=== PATIENT | female | born 1955 | race Caucasian/White ===

== ENCOUNTER → 2016-08-03 | Outpatient (CLI) | payer OTHER ==
--- NOTE | 2016-08-03 11:01 | REPMRS ---
Patient History The patient states she had a clinical breast exam in 08/04 Patient is postmenopausal and is nulliparous. Family history of unknown cancer in father at age 50 or over, prostate cancer in maternal grandfather at age 50 or over, colorectal cancer in paternal grandfather at age 50 or over, breast cancer in mother at age 50 or over, ovarian cancer in mother at age 50 or over, colorectal cancer in paternal aunt at age 50 or over, colorectal cancer in paternal grandmother at age 50 or over, colorectal cancer in maternal grandmother at age 50 or over, and unknown cancer in paternal uncle at age 50 or over. Benign excisional biopsy of the left breast. Digital Woman Screen Mammo: August 03, 2016 - Exam #: [id number] Bilateral CC and MLO view(s) were taken. Technologist: Santa Don, Technologist Prior study comparison: July 14, 2015, digital woman screen mammo performed at [facility]. July 09, 2014, digital woman screen mammo performed at [facility]. FINDINGS: The breast tissue is heterogeneously dense. This may lower the sensitivity of mammography. There is a fairly symmetric fibroglandular pattern in both breasts. There has been no interval development of masses, areas of architectural distortion or clusters of microcalcifications typical of malignancy. ASSESSMENT: BI-RADS/ACR category 2 mammogram. Benign finding(s). Given the family history and heterogeneously dense breast parenchyma, consider MRI for further evaluation. Recommendation Routine screening mammogram of both breasts in 1 year (for women over age 40). This mammogram was interpreted with the aid of an FDA-approved computer-aided dectection system. Electronically Signed By: Sarath Camara MD 08/03/16 [id number]
== END ==
LOC: M WHC 09:42
PROVIDERS: ATTEND Family Medicine
DX: Z12.31 Encounter for screening mammogram for malignant neoplasm of breast (principal); Z78.0 Asymptomatic menopausal state; Z80.3 Family history of malignant neoplasm of breast; R92.2 Inconclusive mammogram

== ENCOUNTER → 2017-08-05 | Outpatient (CLI) | payer OTHER | LOC: M WHC 09:33 | DX: Z12.31 Encounter for screening mammogram for malignant neoplasm of breast (principal); Z80.3 Family history of malignant neoplasm of breast ==

== ENCOUNTER → 2018-08-06 | Outpatient (CLI) | payer OTHER ==
--- NOTE | 2018-08-06 10:55 | REPMRS ---
Patient History The patient states she had a clinical breast exam in June 2018. Family history of breast cancer at age 50 or over in mother, ovarian cancer at age 50 or over in mother, colorectal cancer at age 50 or over in paternal aunt, colorectal cancer at age 50 or over in paternal grandfather, unknown cancer at age 50 or over in paternal uncle, unknown cancer at age 50 or over in father, colorectal cancer at age 50 or over in paternal grandmother, colorectal cancer at age 50 or over in maternal grandmother, prostate cancer at age 50 or over in maternal grandfather. Benign excisional biopsy of the left breast. 3D TOMOSYNTHESIS WAS PERFORMED. The [facility] lifetime risk for breast cancer is 16.9%. Digital Mammo Screening Bilat: August 06, 2018 - Exam #: [id number] Bilateral CC and MLO view(s) were taken. Technologist: Iesha Mena Technologist Prior study comparison: August 05, 2017, bilateral digital woman screen mammo, performed at [facility]. August 03, 2016, digital woman screen mammo, performed at [facility]. FINDINGS: The breast tissue is extremely dense which could obscure a lesion on mammography. There is no evidence of cancer on this mammogram. Assessment: BI-RADS/ACR category 2 mammogram. Benign Findings. Recommendation Routine screening mammogram of both breasts in 1 year (for women over age 40). This mammogram was interpreted with the aid of an FDA-approved computer-aided dectection system. Electronically Signed By: Sarath Camara MD 08/06/18 [id number]
== END ==
LOC: M RAD 09:55
PROVIDERS: ATTEND Family Medicine
DX: Z12.31 Encounter for screening mammogram for malignant neoplasm of breast (principal); Z80.3 Family history of malignant neoplasm of breast; R92.2 Inconclusive mammogram

== ENCOUNTER → 2019-10-07 | Outpatient (CLI) | payer MEDICARE, BC ==
--- NOTE | 2019-10-10 12:07 | REPMRS ---
Patient History The patient states she has not had a clinical breast exam in over a year. Patient is postmenopausal and is nulliparous. Family history of breast cancer at age 50 or over in mother, ovarian cancer at age 50 or over in mother, colorectal cancer at age 50 or over in paternal aunt, colorectal cancer at age 50 or over in paternal grandfather, unknown cancer at age 50 or over in paternal uncle, unknown cancer at age 50 or over in father, colorectal cancer at age 50 or over in paternal grandmother, colorectal cancer at age 50 or over in maternal grandmother, prostate cancer at age 50 or over in maternal grandfather. Benign excisional biopsy of the left breast. No Hormone Replacement Therapy Digital Woman Screen Mammo: October 07, 2019 - Exam #: [id number] Bilateral CC and MLO view(s) were taken. Technologist: Santa Don, Technologist Prior study comparison: August 06, 2018, bilateral digital mammo screening bil, performed at [facility]. August 05, 2017, bilateral digital woman screen mammo performed at [facility]. August 03, 2016, digital woman screen mammo performed at [facility]. FINDINGS: The breast tissue is heterogeneously dense. This may lower the sensitivity of mammography. The [employer] volumetric breast density category is: C. There is a moderate amount of heterogeneously dense fibroglandular tissue which is fairly symmetric. There is no interval development of dominant mass, architectural distortion, or grouped microcalcification typical of malignancy. There has been no change in the appearance of the mammogram from the prior studies. 3-D tomosynthesis shows no additional findings. Assessment: BI-RADS/ACR category 1 mammogram. Negative Mammogram. Recommendation Routine screening mammogram of both breasts in 1 year (for women over age 40). This patient's Lifetime Breast Cancer RIsk is estimated at 16.1 %. This mammogram was interpreted with the aid of an FDA-approved computer-aided dectection system. Electronically Signed By: Parth Izaguirre MD 10/10/19 [id number]
--- NOTE | 2019-10-16 08:59 | DEXA ---
AP SPINE L1 - L4 1.032 -1.3 0.3 LT FEMUR TOTAL 0.830 -1.4 -0.2 LT NECK 0.834 -1.5 0.0 RT FEMUR TOTAL 0.778 -1.8 -0.6 RT NECK 0.772 -1.9 -0.4 TOTAL BODY TOTAL OTHER COMMENTS: There is low bone density of the spine and hips. The density of the spine has decreased 7.0% since the initial exam on 06/03/2008. The decreased 7.0% since the most recent exam on 08/09/2014. The density of the left hip has decreased 12.1% since the initial exam on 06/03/2008. The density of the left hip has decreased 1.4% since the most recent exam on 08/09/2014. The density of the right hip has decreased 14.2% since the initial exam on 06/03/2008. The density of the right hip has decreased 1.3% since the most recent exam on 08/09/2014. FOLLOW-UP: Recommendation for the next bone density exam: 2 years. CHUY
== END ==
LOC: M WHC 12:24
PROVIDERS: ATTEND Family Medicine
DX: Z12.31 Encounter for screening mammogram for malignant neoplasm of breast (principal); E28.39 Other primary ovarian failure